=== PATIENT | female | born 1990 | race Caucasian/White ===

== ENCOUNTER 2021-04-17 08:54 | Emergency (ER) | payer OTHER, SELFPAY ==
[2021-04-17 09:03] VITALS: BP 139/68; PULSE 84; RESP 18; TEMP 37.3; O2SAT 99
--- NOTE | 2021-04-17 09:10 | ED.DIZZY ---
HPI - Dizziness General Chief Complaint: Dizziness Stated Complaint: Passed out twice, dizzines, Light headed, Time Seen by Provider: 04/17/21 09:11 Source: patient, RN notes reviewed and old records reviewed Mode of arrival: ambulatory Limitations: no limitations History of Present Illness HPI Narrative: 30 year old female who presents to [facility] care with complaints of passing out on Wednesday at work. Patient states that she was bending over picking up trays and she passed out. She states that she was sent home from work and she vomited twice that day with no further emesis. Wednesday she was home with her son and she passed out twice. Patient states that she went to the Dentist last for dental pain was put on antibiotic of amoxicillin for dental abscess and has been taking this antibiotic since then. Patient states she has tingling type of sensation to the left forehead area and she has metal taste in her mouth with some discomfort to left upper last molar area MD elicited complaint: dizziness and other (syncopal episodes since Wednesday X1 and X2 on Wednesday) Pertinent past history: other (presenting being treated for dental abscess) Onset (ago): day(s) (4 days) Timing: sudden onset Severity: moderate Description: lightheadedness and other (syncopal episodes) Context: other (dental abscess) History of similar symptoms: No Exacerbating factors: movement/ambulation and change in body position Relieving factors: remaining still Associated symptoms: other (tingling sensation to left forehead with metal taste to mouth) Associated neuro symptoms: other (tingling sensation to left forehead and metal taste in mouth) Related Data Home Medications Medication Instructions Recorded Confirmed amoxicillin 500 mg PO BID 04/17/21 04/17/21 Allergies Allergy/AdvReac Type Severity Reaction Status Date / Time No Known Allergies Allergy Verified 04/17/21 09:09 Review of Systems Review of Systems: Narrative: CONSTITUTIONAL: Denies fever, chills, or sweats. EYES: Denies visual changes, redness, or discharge. ENT: Denies rhinorrhea, congestion, sore throat, or otalgia, dental pain to left upper tooth posterior molar CARDIOVASCULAR: Denies chest pain, palpitations, or edema. RESPIRATORY: Denies cough or dyspnea. GASTROINTESTINAL: Denies abdominal pain, nausea, vomiting, or diarrhea. GENITOURINARY: Denies dysuria or hematuria. SKIN: Denies rash or itching. MUSCULOSKELETAL: Denies back pain, joint pain, or myalgia. NEUROLOGIC: Positive for tingling to left side of forehead, no numbness, or weakness,dizziness with episodes of syncope since Wednesday. PSYCHIATRIC: Denies anxiety or depression. All systems reviewed & are unremarkable except as noted in HPI and below PMFSH Past Medical History Medical History (Updated 04/18/21 @ 11:00 by Idalmis Shields NP) Seasonal allergies Surgical History Surgical History (Updated 04/17/21 @ 10:08 by Idalmis Shields NP) History of tubal ligation Previous section Family History Family History (Updated 04/17/21 @ 10:09 by Idalmis Shields NP) Father No problems noted. Grandparent Diabetes mellitus Heart disease Hypertension Social History Social History (Updated 04/17/21 @ 10:09 by Idalmis Shields NP) Smoking status: Never smoker Alcohol intake: never Substance use: never Living arrangements: with family Gender identity (if verbalized by the patient): Female Comments At time of signature, agree with nursing past medical, surgical, social and family history. There is no relevant family history pertinent to the presenting complaint Exam Narrative: Exam Narrative: GENERAL: Well-appearing, well-nourished, and in no acute distress. HEAD: Normocephalic, atraumatic. EYES: PERRLA and EOMI. ENT: Nares light red with some clear rhinorrhea no epistaxis. Mucous membranes moist.TM's normal with good light reflex, throat pink with no lesions or exudate, no tonsil enlarg
[2021-04-17 09:14] VITALS: BP 138/78; BP 139/75; BP 140/70; PULSE 83; PULSE 91
== END 2021-04-17 09:52 | disposition short-term general hospital (02) ==
LOC: EXPBETH 09:01
PROVIDERS: Emergency Provider Registered Nurse
DX: R55 Syncope and collapse (principal)
CPT/HCPCS: 81003; 81025; 99213; G0463

== ENCOUNTER 2023-10-22 16:39 | Emergency (ER) | payer OTHER, SELFPAY ==
[2023-10-22 16:45] VITALS: BP 138/81; PULSE 88; RESP 16; TEMP 36.8; O2SAT 100
[2023-10-22 16:53] VITALS: BP 138/81; PULSE 88; RESP 16; TEMP 36.8; O2SAT 100
--- NOTE | 2023-10-22 17:01 | ED.URI ---
HPI - URI/Sore Throat General Chief Complaint: Upper Respiratory Infection Stated Complaint: left ear pain/congestion Time Seen by Provider: 10/22/23 17:01 Source: patient, RN notes reviewed and old records reviewed Mode of arrival: ambulatory Limitations: no limitations History of Present Illness HPI Narrative: 33 year old female who presents to [facility] care with complaints of left ear pain for 1 day duration and sinus congestion and drainage for the past 2 days. Patient reports that she has taken Tylenol for her discomfort and used nasal saline for her sinus congestion. Patient denies any know fevers, headaches, body aches or any acute cough. MD elicited complaint: rhinorrhea, nasal congestion and other (left ear pain) Onset (ago): day(s) (2 days sinus congestion drainge 1 day left ear pain ) Severity: moderate Able to tolerate fluids by mouth: Yes Treatments prior to arrival: acetaminophen and other (nasal saline) Related Data Allergies Allergy/AdvReac Type Severity Reaction Status Date / Time adhesive Allergy Unknown Verified 10/22/23 16:53 hydrocodone Allergy Hives Verified 10/22/23 16:53 Review of Systems Review of Systems: CONSTITUTIONAL: Denies malaise, chills, sweats, or fever. EYES: Denies visual changes, redness, or discharge. ENT: Reports rhinorrhea, congestion,no sinus pain,left otalgia and no sore throat. CARDIOVASCULAR: Denies chest pain, palpitations, or edema. RESPIRATORY: Reports no cough.? Denies dyspnea. GASTROINTESTINAL: Denies abdominal pain, nausea, vomiting, diarrhea SKIN: Denies rash or itching. MUSCULOSKELETAL: Denies myalgia. NEUROLOGIC: Denies headache. All systems reviewed & are unremarkable except as noted in HPI and below PMFSH Past Medical History Medical History Seasonal allergies Surgical History Surgical History History of tubal ligation Previous section Family History Family History Father No problems noted. Grandparent Diabetes mellitus Heart disease Hypertension Social History Social History Smoking status: Never smoker Alcohol intake: never Substance use: never Living arrangements: with family Gender identity (if verbalized by the patient): Female Comments At time of signature, agree with nursing past medical, surgical, social and family history. There is no relevant family history pertinent to the presenting complaint Exam Narrative: GENERAL: Well-appearing, well-nourished, and in no acute distress. HEAD: Normocephalic EYES: PERRLA, conjunctivae clear ENT: Nares clear, turbinates edematous and erythematous, clear discharge. Mucous membranes moist.Left TM red and bulging. Right TM pearly king with dull light reflex bilaterally; no tragal tenderness. Oropharynx erythematous without lesions. Tonsils not enlarged and without exudate, no drooling, no hoarseness, no trismus, uvula midline.post nasal drainage NECK: Supple. No lymphadenopathy CHEST: Clear to auscultation, breath sounds equal. No wheezing, rhonchi, rales, or stridor. No respiratory distress, speaks in full sentences.SAO2 100% on room air HEART: Regular rate and rhythm. No murmur heard. SKIN: Warm, dry, no rash. NEURO: Alert and oriented x3. PSYCH: Normal mood and affect Course Course Emergency Course: Patient is aware of diagnosis, understands and agrees to treatment plan.? Anticipatory guidance given.? Patient agrees to follow-up as directed and is aware of reasons to seek care at the emergency department. Portions of this record may have been created with voice recognition software Level of Care: Express Care Visit Vital Signs Vital signs: Vital Signs Temperature 36.8 C 10/22/23 16:45 Pulse Rate 88
== END 2023-10-22 17:20 | disposition home or self-care (01) ==
PROVIDERS: Emergency Provider Registered Nurse
DX: H66.92 Otitis media, unspecified, left ear (principal)
CPT/HCPCS: 99213; G0463

== ENCOUNTER 2024-08-22 13:22 | Emergency (ER) | payer OTHER, SELFPAY ==
--- NOTE | ~2024-08-22 | XR_ITS ---
XR chest 2V Ordering provider: Orquidea Pineda APRN History: 33 years Female with . heavy chest , difficult to take deep breath . Comparison: None. FINDINGS: MEDIASTINUM: The cardiac silhouette is not enlarged. Calcified lymph nodes in the right hilum. LUNGS: No infiltrates, effusions or pneumothorax. Calcified Granulomas in the right lower lobe area. OTHER: No free air under the diaphragm. IMPRESSION: No acute cardiopulmonary pathology. Reviewed, dictated and finalized at location A. [employer]NA[employer]
[2024-08-22 13:24] VITALS: BP 131/89; PULSE 92; RESP 16; TEMP 36.7; O2SAT 98
--- NOTE | 2024-08-22 13:30 | ED.URI ---
HPI - URI/Sore Throat General Chief Complaint: Upper Respiratory Infection Stated Complaint: Shortness Of Breath/Congestion/Ear Pain Time Seen by Provider: 08/22/24 13:30 Source: patient, RN notes reviewed and old records reviewed Mode of arrival: ambulatory Limitations: no limitations History of Present Illness HPI Narrative: 33-year-old female to Express Care with complaint postnasal drainage, hard to catch breath since Wednesday. Patient states that her employer made her leave work due to her symptoms. Patient denies cough , fever, chest pain, sore throat, ear pain, GI complaints. Patient endorses history of seasonal asthma; states she has attempted to treat at home with albuterol. Patient able to tolerate fluids by mouth. Patient resting in exam room in no acute distress. Respirations even and nonlabored. Patient able to speak full sentences without difficulty. Related Data Home Medications Medication Instructions Recorded Confirmed Zyrtec 08/22/24 albuterol 08/22/24 Allergies Allergy/AdvReac Type Severity Reaction Status Date / Time adhesive Allergy Unknown Verified 08/22/24 13:24 hydrocodone Allergy Hives Verified 08/22/24 13:24 Penicillins Allergy Rash Verified 08/22/24 13:57 pineapple Allergy Swelling Verified 08/22/24 13:57 of Lip/Tongue/Throat Review of Systems Review of Systems: All systems reviewed & are unremarkable except as noted in HPI and below Constitutional: Constitutional: Reports no additional constitutional complaints Eyes: Eyes: Reports no additional eye complaints ENT: Reports as per HPI and Reports post nasal drip Cardiovascular: Cardiovascular: Reports no additional cardiovascular complaints, Denies chest pain and Denies dyspnea Respiratory: Respiratory: Reports no additional respiratory complaints, Denies cough, Denies dyspnea and Reports other ( hard to catch breath ) Musculoskeletal: Musculoskeletal: Reports no additional musculoskeletal complaints Neurologic: Reports system reviewed and no additional complaints, except as documented Psychiatric: Psychiatric: Reports no additional psychiatric complaints [facility] Past Medical History Medical History Seasonal allergies Surgical History Surgical History History of tubal ligation Previous section Family History Family History Father No problems noted. Grandparent Diabetes mellitus Heart disease Hypertension Social History Social History Smoking status: Never smoker Alcohol intake: never Substance use: never Living arrangements: with family Gender identity (if verbalized by the patient): Female Comments At the time of my signature, I reviewed and agree with the nursing past medical, surgical, social, and family history. There is no relevant family history pertinent to the patient complaint. Exam Const: General: cooperative, no acute distress, well developed, alert, tired appearing, well groomed and well nourished Nutritional Appearance: well nourished Orientation/consciousness: patient oriented x3 Limitations: no limitations HENMT: Head: normal to inspection Ears: external ears normal and TM abnormal with fluid behind the TM bilateral and with loss of landmarks bilateral Face/Nose/Sinus: Normal external nose present, Normal nares present, normal facial exam, No erythema and No edema Face and sinus: normal facial exam, no erythema and no edema Mouth: Yes Normal oral and palatal mucosa present Throat: postnasal drainage Eyes: General: appearance normal, both eyes and all related structures Neck: Neck: normal visual inspection, full ROM and no meningeal signs Lymphatic: no lymphadenopathy noted and no lymphedema noted Chest: Chest palpation & inspection: normal inspection of the chest Resp: Effort & Inspection: normal respiratory effort and able to speak in complete sentences Auscultation: clear to auscultation bilaterally and diminished lung sounds bilateral in the lower lung torres Cardio: Jugular venous distension: no JVD Rate: regular rate Rhythm: regular rhythm Back/Spine/Pelvis: Cervical Spine: cervical ROM normal Skin: General skin exam: normal color, no rashes or lesions noted and turgor normal Neuro: General: patient oriented x3, gait normal, moves all extremities and no meningeal signs Speech: normal speech Gait exam (Neuro): Normal gait present Extrem: General: normal to inspection, full ROM and capillary refill normal Psych: Appearance: grossly normal and well kempt Course Course Emergency Course: Some parts of this dictation were generated by voice recognition software and may contain typographical and/or grammatical inaccuracies. Level of Care: Express Care Visit Vital Signs Vital signs: Vital Signs Temperature 36.7 C 08/22/24 13:24 Pulse Rate 92 08/22/24 13:24 Respiratory Rate 16 08/22/24 13:24 Blood Pressure 131/89 08/22/24 13:24 Pulse Oximetry 98 08/22/24 13:24 Oxygen Delivery Room Air 08/22/24 13:24 Temperature 36.7 C 08/22/24 13:24 Pulse Rate 92 08/22/24 13:24 Respiratory Rate 16 08/22/24 13:24 Blood Pressure 131/89 08/22/24 13:24 Pulse Oximetry 98 08/22/24 13:24 Oxygen Delivery Room Air 08/22/24 13:24 reviewed MDM - URI/Sore Throat MDM Narrative Medical decision making narrative: 33-year-old female to Express Care with complaint postnasal drainage, hard to catch breath since Wednesday. Patient states that her employer made her leave work due to her symptoms. Patient denies cough , fever, chest pain, sore throat, ear pain, GI complaints. Patient endorses history of seasonal asthma; states she has attempted to treat at home with albuterol. Patient able to tolerate fluids by mouth. Patient resting in exam room in no acute distress. Respirations even and nonlabored. Patient able to speak full sentences without difficulty. On exam, bilateral TMs with fluid and loss of landmarks, posterior oropharynx with postnasal drainage. On auscultation, bilateral lower lung torres diminished. Exam otherwise unremarkable. X-ray of chest negative for acute findings in clinic. Patient is sitting comfortably in exam room nontoxic in appearance. Patient appropriate for outpatient treatment and follow-up. Discharge instructions reviewed with patient, as well as provided in writing per nursing staff. The instructions also include specific and strict return/GO TO THE ER as well as f/u information. All questions have been answered, and the patient deny any further questions with discharge and discharge plan. Some parts of this dictation were generated by voice recognition software and may contain typographical and/or grammatical inaccuracies. Differential Diagnosis Differential diagnosis: Likely upper respiratory infection, croup, otitis media, sinusitis, viral infection, bronchitis, influenza and pharyngitis Imaging Data Radiologist's impression: Ordering provider: Orquidea Pineda APRN History: 33 years Female with . heavy chest , difficult to take deep breath . Comparison: None. FINDINGS: MEDIASTINUM: The cardiac silhouette is not enlarged. Calcified lymph nodes in the right hilum. LUNGS: No infiltrates, effusions or pneumothorax. Calcified Granulomas in the right lower lobe area. OTHER: No free air under the diaphragm. IMPRESSION: No acute cardiopulmonary pathology. Discharge Plan Discharge Clinical Impression: Bacterial sinusitis Patient Disposition: Home, Self-Care Condition: Stable Instructions: Sinusitis (ED) Additional Instructions: -Alternate Tylenol and Motrin per package directions for fever or pain. -Antihistamine medication such as Benadryl at night and Zyrtec/Claritin/Serenity during the day can help improve symptoms. -Use Flonase twice a day for 5 days then daily to help reduce the inflammation and dry up your sinuses. -You can also use Sudafed or Mucinex. Be sure to drink plenty of water with these medications at least 8 ounces with every dose and it is important to drink 8 to 10 glasses of water per day. Water is a natural decongestant -Eat and drink things that are easy to swallow, like tea or soup, or popsicles. -Oral rinses such as: Salt water gargles and/or may use topical anesthetic (eg. Chloraseptic spray) or lozenges to relieve dryness or throat pain). -Frequent hand washing or hand run boat operator is one of the best ways to prevent spread of infection. -Using a vaporizer or humidifier at night will also help thin secretions and help with coughing up phlegm. -Follow up with primary care provider in 2-3 days if condition is not improving; or seek ER visit if you have trouble breathing, cannot drink enough fluids, have muffled voice, difficulty opening your mouth, or severe swelling. Prescriptions: New doxycycline monohydrate 100 mg tablet 100 mg PO BID Qty: 14 0RF No Action Zyrtec albuterol Follow-up/Referrals: PHYSICIAN NOT ON STAFF,NONSTAFF [Primary Care Provider] - Stand Alone Forms: Work/School Release IP
== END 2024-08-22 14:20 | disposition home or self-care (01) ==
PROVIDERS: Emergency Provider Nurse Practitioner Family
DX: J32.9 Chronic sinusitis, unspecified (principal); B96.89 Other specified bacterial agents as the cause of diseases classified elsewhere
CPT/HCPCS: 71046; 99213; G0463

== ENCOUNTER 2025-05-08 16:11 | Emergency (ER) | payer OTHER, SELFPAY ==
--- OUTSIDE RECORDS SUMMARY | 2025-05-08 16:14 | XMS_ITS | Clinical Summary ---
Author Organization [facility] Address [address] [place] [address] Phone Care Team Providers Care Cargo Surveyor Name Role Phone Moira Mora APRN, CNP Unavailable Moira Mora APRN, CNP Primary Care P rovider Allergies Active Allergy Reactions Criticality Noted Date Comments Codeine Itching 04/12/2017 Dicloxacillin Anaphylaxis,Hives,It jaclyn,R leatha,Swelling High 07/10/2024 Pineapple Anaphylaxis 07/10/2024 Hydrocodone-Acetaminophen Itching 04/12/2017 Medications Multiple Vitamin (MULTIVITAMIN PO) Take by mouth. Activ e cetirizine (ZyrTEC) 10 MG TabletIndication s:Subacute cough,Seasonal allergic rhinitis, unspecified trigger Take 1 Tablet by mouth nightly. 4 Active doxycycline monohydrate 100 MG Tablet Take 100 mg by mouth 2 times daily. 4 Active metoclopramide (REGLAN) 10 MG Tablet Take 1 Tablet by mouth 4 times daily as needed for Nausea - 1st line. 12 Tablet 4 Active traMADol (ULTRAM) 50 MG TabletIndication s:Upper abdominal pain Take 1-2 Tablets by mouth every 6 hours as needed for Moderate or more severe pain. 20 Tablet 4 Active predniSONE (DELTASONE) 50 MG Tablet Take 1 Tablet by mouth daily. 5 Tablet 5 Active triamcinolone (KENALOG) 0.1 % Cream Apply 3 times daily. Application Site: rash sites (Description and Location) 15 g 5 Active Active Problems Problem Noted Date Diagnosed Date Syncope and collapse 04/30/2021 Encounters Date Type Department Care Team Description 02/22/2025 9:56 PM CDT - 02/22/2025 11:28 PM CDT Emergency [facility] Emergency [address] [place] [address] Asher Mancia MD Allergic reaction, initial encounter Discharge Disposition: Discharged to home or Selfcare 02/22/2025 Travel from Last 3 Months Immunizations Immunization Administration Dates Next Due DTAP VACCINE 02/24/1994, 1,03/18/1990,1989,1989 Hepatitis A Vaccine, Pediatric/adolescent, 2 Dose Schedule 05/14/2003 Hepatitis A, Pediatric, Unsp ecified Formulation 07/31/2008 Hepatitis B Vaccine, Pediatric/adolescent 12/29/1999,02/08/1998,09/13/1997,1991 Hib Vaccine,unspecified Formulation 10/30/1991 MMR Vaccine 05/28/1993,12/15/1990 OPV 03/18/1990,01/17/1990,1989 Oral Polio Vaccine, Unspecif ied Formulation 02/24/1994,05/28/1993,03/20/1991 TD VACCINE 06/16/2002 TDAP Vaccine 09/10/2017 Family History Medical History Relation Name Comments Heart Attack Maternal Grandfather Hypertension Maternal Grandfather Breast Cancer Maternal Grandmother Cancer Maternal Grandmother Thyroid Disease Maternal Grandmother Labor Mother Relation Name Status Comments Maternal Grandfather Maternal Grandmother Mother Social History Tobacco Use Types Packs/Day Years Used Date Smoking Tobacco: Never Smokeless Tobacco: Never Tobacco Cessation:Counseling Given: Not Answered Alcohol Use Standard Drinks/Week Comments No 0 (1 standard drink = 0.6 oz pur e alcohol) [facility] Utilities Answer Date Recorded In the past 12 months has e [place], gas, oil, or water company threatened to shut off services in your home? No 06/18/2024 Social Connection and Isolation Panel Answer Date Recorded In a typical week, how many times do you talk on the phone with family, friends, or neighbors? More than three times a week 06/18/2024 How often do you get togethe r with friends or relatives? Once a week 06/18/2024 How often do you attend chur ch or sikh services? Never 06/18/2024 Do you belong to any clubs o r organizations such as zoroastrian groups, unions, fraternal or athletic groups, or school groups? Yes 06/18/2024 How often do you attend meet ings of the clubs or organizations you belong to? More than 4 times per year 06/18/2024 Are you , , di vorced, , never , or living with a partner? 06/18/2024 AUDIT-C Answer Date Recorded Q1: How often do you have a drink containing alcohol? Never 06/18/2024 Q2: How many drinks containi ng alcohol do you have on a typical day when you are drinking? Patient does not drink Q3: How often do you have si x or more drinks on one occasion? Never 06/18/2024 Overall Financial Resource Strain (CARDIA) Answe r Date Recorded How hard is it for you to pa y for the very basics like food, housing, medical care, and heating? Not very hard 06/18/2024 PHQ-2 Answer Date Recorded Total Score - Questions 1-9 0 04/03 [facility] - Occupational Stress Questionnaire Answer Date Recorded Do you feel stress - tense, restless, nervous, or anxious, or unable to sleep at night because your mind is troubled all the time - these days? Rather much 06/18/2024 Exercise Vital Sign Answer Date Recorde d On average, how many days pe r week do you engage in moderate to strenuous exercise (like a brisk walk)? 5 days 06/18/2024 On average, how many minutes do you engage in exercise at this level? 30 min 06/18/2024 Hunger Vital Sign Answer Date Recorded Within the past 12 months, y ou worried that your food would run out before you got the money to buy more. Never true 06/18/20 24 Within the past 12 months, t he food you bought just didn't last and you didn't have money to get more. Never true 06/18/2024 PRAPARE - Transportation Answer Date Re corded In the past 12 months, has l ack of transportation kept you from medical appointments or from getting medications? No 06/04 In the past 12 months, has l ack of transportation kept you from meetings, work, or from getting things needed for daily living? No 06/18/2024 Housing Stability Vital Sign Answer Colt e Recorded In the last 12 months, was t here a time when you were not able to pay the mortgage or rent on time? No 06/18/2024 In the past 12 months, how m any times have you moved where you were living? 0 06/18/2024 At any time in the past 12 m [facility], were you homeless or living in a retirement (including now)? No 06/18/2024 Education Answer Date Recorded What is the highest level of school you have completed or the highest degree you have received? Associate degree: academic program 03/01/2023 Sexually Active Control Partners Comments Yes None Male Comments No Sex and Gender Information Value Date Recorded Sex Assigned at Not on file Legal Sex Female 8:25 AM CDT Gender Identity Not on file Sexual Orientation Not on file Last Filed Vital Signs Vital Sign Reading Time Taken Comments Blood Pressure 141/82 02/22/2025 11:15 PM CDT Pulse 70 02/22/2025 11:27 PM CDT Temperature 36.6 C (97.9 F) 02/22/2025 9:16 PM CDT Respiratory Rate 13 02/22/2025 9:16 PM CDT Oxygen Saturation 100% 02/22/2025 11:27 PM CDT Inhaled Oxygen Concentration - - Weight 81.6 kg (180 lb) 02/22/2025 9:16 PM CDT Height 152.4 cm (5') 02/22/2025 9:16 PM CDT Body Mass Index 35.15 02/22/2025 9:16 PM CDT Plan of Treatment Health Maintenance Due Date Last Done Comments Hepatitis C Virus (HCV) Screening 1989 Human Papillomavirus (HPV) Immunization (1 - 3-dose SCDM series) 2016 HPV/Cotest 2019 Cervical Cancer Screening (CCS) 10/19/2020 Pap Smear 10/19/2020 10/19/2017 SARS-COV-2 Immunization ( season) 2024 08/24/2022, 03/11/2022, 07/07/2021, Additional history exists Influenza Immunization (#1) 2025 DTaP/Tdap/Td Immunization (7 - Td or Tdap) 09/10/2027 09/10/2017, 06/16/2002, 02/24/1994, Additional history exists Respiratory Syncytial Virus (RSV) Immunization (Adult) (1 - 1-dose 75+ series) 2064 Hepatitis B Immunization Completed , 02/08/1998, 09/13/1997, Additional history exists Meningococcal Immunization (ACWY) Aged Out No longer eligible based on patient's age to complete this topic Pneumococcal Immunization Combined Aged Out No longer eligible based on patient's age to complete this topic Rotavirus Immunization Aged Out No lo nger eligible based on patient's age to complete this topic Procedures Procedure Name Priority Date/Time Associated Diagnosis Comments PATHOLOGY CYTOLOGY SKATESMAN (PAP SMEAR) Routine 10/19/2017 from Last 3 Months or Most Recently Relevant to Health Maintenance Results * PATHOLOGY CYTOLOGY SKATESMAN (PAP SMEAR) (10/19/2017) Fahad Garcia MD PATHOLOGY/CYTOLOGY ORD ERABLES Final Result from Last 3 Months or Most Recently Relevant to Health Maintenance Insurance MEDICAID [facility] Advance Directives * Full Code (Latest Code Status on File) Date Activated Date Inactivated Comments 2017 1:18 PM 2017 3:17 PM CPR-Full Terrance atment: FULL ARREST: Attempt Resuscitation/CPR wit intubation and mechanical ventilation. PRE-ARREST: Use entire range of life support measures to stabilize the patient. * Full Code Date Activated Date Inactivated Comments 09/02/2017 1:39 AM 09/02/2017 6:29 AM CPR-Full T reatment: FULL ARREST: Attempt Resuscitation/CPR wit intubation and mechanical ventilation. PRE-ARREST: Use entire range of life support measures to stabilize the patient. * Full Code Date Activated Date Inactivated Comments 08/27/2017 7:41 PM 08/28/2017 12:44 AM CPR-Full Treatment: FULL ARREST: Attempt Resuscitation/CPR wit intubation and mechanical ventilation. PRE-ARREST: Use entire range of life support measures to stabilize the patient. * Full Code Date Activated Date Inactivated Comments 08/18/2017 10:56 PM 08/19/2017 2:41 AM CPR-Full Treatment: FULL ARREST: Attempt Resuscitation/CPR wit intubation and mechanical ventilation. PRE-ARREST: Use entire range of life support measures to stabilize the patient. * Full Code Date Activated Date Inactivated Comments 07/26/2017 7:44 PM 07/26/2017 11:52 PM CPR-Full Treatment: FULL ARREST: Attempt Resuscitation/CPR wit intubation and mechanical ventilation. PRE-ARREST: Use entire range of life support measures to stabilize the patient. Care Teams Cargo Surveyor Relationship Specialty Start Date End Date Moira Mora APRN, [employer] [address] [place] [address] PCP - General Advanced Practice Nurse 04/18/21 Moira Mora APRN, [employer] [address] [place] [address] Nurse Practitioner Advanced Practice Nurse 04/17/21
--- OUTSIDE RECORDS SUMMARY | 2025-05-08 16:14 | XMS_ITS | Clinical Summary ---
Author Organization [facility] [employer] Address [address] [place] [address] Care Team Providers Care Shade Hanger Name Role Phone Preston Vela MD Primary Care Provider [phone] Source Comments [facility] [employer],non-[facility] Affiliates and Associated Physician Practices is amultiple site organization consisting of ambulatory clinics and hospital sitesin [place], [place], [place] and [place]. This disclosure is being madepursuant to the Care Everywhere program and may not contain all information available regarding this patient. Last updated 18.[facility] [employer] Allergies Active Allergy Reactions Criticality Noted Date Comments Hydrocodone Rash,Itching Medium 09/01/2018 Medications * Be aware that medications may not be up to date on this document. Alwaysverify current medications with the patient. benzonatate (TESSALON) 200 MG capsule Take 1 capsule by mouth 3 times daily as needed for Cough 30 capsule 10/02/2019 Active Active Problems Problem Noted Date Diagnosed Date Other specified nonscarring hair loss 2018 Family History Medical History Relation Name Comments Asthma Neg Hx CVA Neg Hx Cancer - Breast Neg Hx Cancer - Other Neg Hx Cancer - Skin, Melanoma Neg Hx Cancer - Skin, Non Melanoma Neg Hx Eczema Neg Hx Hemophilia Neg Hx Psoriasis Neg Hx Social History Tobacco Use Types Packs/Day Years Used Date Smoking Tobacco: Never Smokeless Tobacco: Never Alcohol Use Standard Drinks/Week Comments No 0 (1 standard drink = 0.6 oz pur e alcohol) Comments No Sex and Gender Information Value Date Recorded Sex Assigned at Not on file Legal Sex Female 3:25 PM CDT Gender Identity Not on file Sexual Orientation Not on file Last Filed Vital Signs Vital Sign Reading Time Taken Comments Blood Pressure 126/74 10/02/2019 4:59 PM SAP TRAINER Pulse 97 10/02/2019 4:59 PM SAP TRAINER Temperature 37.3 C (99.1 F) 10/02/2019 4:59 PM SAP TRAINER Respiratory Rate 16 10/02/2019 4:59 PM SAP TRAINER Oxygen Saturation 98% 10/02/2019 4:59 PM SAP TRAINER Inhaled Oxygen Concentration - - Weight 83 kg (183 lb) 10/02/2019 4:59 PM SAP TRAINER Height 152.4 cm (5') 10/02/2019 4:59 PM SAP TRAINER Body Mass Index 35.74 10/02/2019 4:59 PM SAP TRAINER Plan of Treatment Health Maintenance Due Date Last Done Comments HIV SCREENING 2004 HEPATITIS C SCREENING 09/02/2007 DTAP/TDAP/TD VACCINES (1 - Tdap) 2008 HEPATITIS B VACCINE (1 of 3 - 19+ 3-dose series) 2008 PAP SMEAR 2010 HPV VACCINE (1 - 3-dose SCDM series) 2016 COVID-19 VACCINE (1 - 2023-2 5 season) 2024 DEPRESSION SCREENING 10/04/2024 INFLUENZA VACCINE (#1) 2025 ZOSTER VACCINE (1 of 2) 2039 HIB VACCINE Aged Out No longer eligi ble based on patient's age to complete this topic MENINGOCOCCAL (Group B) VACC INE SHARED DECISION-MAKING Aged Out No longer eligibl e based on patient's age to complete this topic MENINGOCOCCAL GROUPS A/C/Y/W VACCINE Aged Out No longer eligible b ased on patient's age to complete this topic PNEUMOCOCCAL VACCINE Aged Out No long er eligible based on patient's age to complete this topic Insurance [facility] Care Teams Shade Hanger Relationship Specialty Start Date End Date Preston Vela MD [address] [place] [address] [place] [address] PCP - General Emergency Medicine 07/18/19
--- NOTE | 2025-05-08 16:19 | ED.SKABFB ---
HPI - Skin/Abscess/Foreign Bdy General Chief complaint: Skin/Abscess/Foreign Body Stated complaint: rash Source: patient Mode of arrival: ambulatory Limitations: no limitations History of Present Illness HPI narrative: 34 y/o female presented for c/o itchy red rash to arms, abdomen, chest and left hip. Onset 2 days after yard work. Denies lip, tongue, or throat swelling, shortness of breath or wheezing. Denies changes to soap, detergent, lotion, or any other exposures. Pt has used multiple otc treatments including Tecnu, poison corinne wash and creams, and triamcinolone cream. Says nothing is helping. Related Data Home Medications ?Medication ?Instructions ?Recorded ?Confirmed ?Last Taken ?Type Zyrtec 08/22/24 Unknown History albuterol 08/22/24 Unknown History Allergies Allergy/AdvReac Type Severity Reaction Status Date / Time adhesive Allergy Unknown Verified 05/08/25 16:26 hydrocodone Allergy Hives Verified 05/08/25 16:26 Penicillins Allergy Rash Verified 05/08/25 16:26 pineapple Allergy Swelling Verified 05/08/25 16:26 of Lip/Tongue/Throat Review of Systems Review of Systems: CONSTITUTIONAL: Denies body aches, fever, chills, or sweats. EYES: Denies visual changes, redness, or discharge. ENT: Denies rhinorrhea, congestion CARDIOVASCULAR: Denies chest pain, palpitations, or edema. RESPIRATORY: Denies cough or dyspnea. GASTROINTESTINAL: Denies abdominal pain, nausea, vomiting, or diarrhea. SKIN: reports rash MUSCULOSKELETAL: Denies back pain, joint pain, or myalgia. NEUROLOGIC: Denies headache, numbness, tingling, or weakness. [facility] Past Medical History Medical History Seasonal allergies Surgical History Surgical History History of tubal ligation Previous section Family History Family History Father No problems noted. Grandparent Diabetes mellitus Heart disease Hypertension Social History Social History Smoking status: Never smoker Alcohol intake: never Substance use: never Living arrangements: with family Gender identity (if verbalized by the patient): Female Comments At time of signature, I have reviewed and agree with nursing past medical, surgical, social and family history unless otherwise noted. Please see nursing chart for further information. There is no relevant family history pertinent to the presenting complaint Exam Narrative: GENERAL: Well-appearing HEAD: Normocephalic, atraumatic. EYES: conjunctivae clear, and EOMI. ENT: Mucous membranes moist. Oropharynx without edema, erythema or lesions. NECK: Supple. No lymphadenopathy CHEST: Clear to auscultation. HEART: Regular rate and rhythm. SKIN: Warm, dry. Erythematous papular rash noted to bilateral breasts c/w yeast; scattered erythematous vesicular patches noted to bilateral forearms and neck c/w contact dermatitis NEURO: Alert and oriented x3. Course Course Emergency Course: Patient is aware of diagnosis, understands and agrees to treatment plan. Anticipatory guidance given. Patient agrees to follow-up as directed and is aware of reasons to seek care at the emergency department. Portions of this record may have been created with voice recognition software Level of Care: Express Care Visit Vital Signs Vital signs: Vital Signs Temperature 98.1 F 05/08/25 16:20 Pulse Rate 81 05/08/25 16:20 Respiratory Rate 20 05/08/25 16:20 Blood Pressure 138/85 05/08/25 16:20 Pulse Oximetry 100 05/08/25 16:20 Oxygen Delivery Room Air 05/08/25 16:20 Temperature 98.1 F 05/08/25 16:20 Pulse Rate 81 05/08/25 16:20 Respiratory Rate 20 05/08/25 16:20 Blood Pressure 138/85 05/08/25 16:20 Pulse Oximetry 100 05/08/25 16:20 Oxygen Delivery Room Air 05/08/25 16:20 Reviewed MDM - Skin/Abscess/Foreign Bdy MDM Narrative Medical decision making narrative: Discussed physical exam findings and RX. Advised supportive measures and signs/symptoms to go to the ER. Pt is appropriate for outpt treatment and f/u. Differential Diagnosis Differential diagnosis: Likely abscess of skin or subcutaneous tissue, viral exanthem, dermatophytosis, urticaria, herpes zoster, cellulitis, eczema, insect bites, impetigo and contact dermatitis Discharge Plan Discharge Clinical Impression: Contact dermatitis, Fungal rash of torso Patient Disposition: Home Condition: Stable Instructions: Antibiotic Form, Contact Dermatitis (ED) Additional Instructions: Wash the chest area with gentle soap and water only. Allow to fully dry! Use skin cream as prescribed to reduce itchiness (triamcinolone to arms, nystatin to chest) Avoid scratching when possible to prevent worsening of the condition and disruption of the skin that could lead to bacterial infection To relieve itching, place a cool washcloth or some ice over the area that itches, rather than scratching Take steroid as directed Follow up with primary care provider Go to the ER if rash worsens or you have chest pain, trouble breathing, become hoarse, or start wheezing, develop belly cramps, vomiting or feel dizzy. Patient Language: Nauruan Prescriptions: New famotidine [Pepcid] 40 mg tablet 40 mg PO DAILY Qty: 10 0RF prednisone 20 mg tablet 40 mg PO DAILY 5 Days Qty: 10 0RF nystatin 100,000 unit/gram cream 1 applic topical TID 10 Days Qty: 30 0RF Rx Instructions: chest No Action Zyrtec albuterol Follow-up/Referrals: PHYSICIAN NOT ON STAFF,NONSTAFF [Primary Care Provider] - Time of Disposition: 16:50
[2025-05-08 16:20] VITALS: BP 138/85; PULSE 81; RESP 20; TEMP 36.7; O2SAT 100
== END 2025-05-08 16:50 | disposition home or self-care (01) ==
PROVIDERS: Emergency Provider Nurse Practitioner Family
DX: L25.9 Unspecified contact dermatitis, unspecified cause (principal); B36.9 Superficial mycosis, unspecified
CPT/HCPCS: 99213; G0463